=== PATIENT | male | born 1995 | race Caucasian/White ===

== ENCOUNTER 2021-01-11 13:13 | Emergency (ER) | payer BC ==
[2021-01-11 13:23] VITALS: BP 158/82; PULSE 90; TEMP 98.1; BMI 32.8
[2021-01-11] MEDS ORDERED: IBUPROFEN 400 MG TABLET (FP) PO ONE ×2 (14:03→14:07)
== END 2021-01-11 14:45 | disposition home or self-care (01) ==
LOC: JERFT 13:13
DX: M79.605 Pain in left leg (principal); W22.8XXA Striking against or struck by other objects, initial encounter; Y92.512 Supermarket, store or market as the place of occurrence of the external cause
CPT/HCPCS: 73590-TC-LT-FY; 99283-25